=== PATIENT | male | born 1965 | race Hispanic/Latino ===

== ENCOUNTER → 2018-03-20 | Outpatient (CLI) | payer MEDICARE ==
[~2018-03-20] MED LIST: CLON1TAB12 PO; CLON2TAB21 PO; CYAN10007 IJ; ESOM40CA PO; FENO145T37 PO; FURO-152 PO; GABA-326 PO; LISI10TA7 PO; LURA80TA PO; METF-446 PO; OMEG1CAP6 PO; SITA100T12 PO; TOPI200T16 PO; VARE1TAB22 PO; VICODIN PO; [UNRECOGNIZED DRUG - REMARK] PO
== END | disposition home or self-care (01) ==
LOC: SHCH 14:20
PROVIDERS: ATTEND Internal Medicine Cardiovascular Disease
DX: I35.8 Other nonrheumatic aortic valve disorders (principal); I51.7 Cardiomegaly
CPT/HCPCS: 93306

== ENCOUNTER → 2018-03-23 | Outpatient (CLI) | payer MEDICARE ==
[~2018-03-23] MED LIST changes: +REGADENOSON 0.4 MG/5 ML PF SYG IVP SCH
== END | disposition home or self-care (01) ==
LOC: SHCH 08:14
PROVIDERS: ATTEND Internal Medicine Cardiovascular Disease
DX: R00.2 Palpitations (principal); R06.02 Shortness of breath
CPT/HCPCS: 78452; 93017; 96374; A9500 ×2; J2785

== ENCOUNTER 2018-07-31 04:15 | Emergency (ER) | payer MEDICARE ==
[~2018-07-31 04:15] MED LIST changes: +ALBU18HF7 IH; +ASPI-555 PO; +ATOR10TA69 PO; +BACL10TA PO; +BUPR-47 PO; -CLON1TAB12 PO; -CLON2TAB21 PO; -CYAN10007 IJ; +CYAN250010 PO; -FENO145T37 PO; -FURO-152 PO; -GABA-326 PO; +GABA600T10 PO; +LISI-617 PO; -LISI10TA7 PO; -LURA80TA PO; +MELA1TAB21 PO; +METF-444 PO; -METF-446 PO; +NITR100C11 PO; -OMEG1CAP6 PO; -REGADENOSON 0.4 MG/5 ML PF SYG IVP SCH; -SITA100T12 PO; +TAMS0.4C32 PO; -TOPI200T16 PO; +TRAZ-185 PO; -VARE1TAB22 PO; -[UNRECOGNIZED DRUG - REMARK] PO
[2018-07-31] MEDS ORDERED: ACETAMINOPHEN EXTRA STRENGTH 500 MG TABLET ONE (04:37)
[2018-07-31 04:43] LABS: APPEARANCE,URINE CLEAR (CLEAR); BILIRUBIN,URINE NEGATIVE (NEGATIVE); COLOR,URINE YELLOW (YELLOW); GLUCOSE, URINE (UA) NEGATIVE (NEGATIVE); KETONES,URINE NEGATIVE (NEGATIVE); LEUKOCYTE ESTERASE ,URINE NEGATIVE (NEGATIVE); NITRATE,URINE NEGATIVE (NEGATIVE); OCCULT BLOOD,URINE TRACE-INTACT (NEGATIVE); PROTEIN,URINE NEGATIVE (NEGATIVE); UROBILINOGEN,URINE 0.2 mg/dL (0.2-1.0)
[2018-07-31 04:44] LABS: EOSINOPHILS % (AUTO) 2.7 % (0.0-8.0); HEMATOCRIT 39.3 % (42-54); LYMPHOCYTES % (AUTO) 27.2 % (21.0-51.0); MEAN CORPUSCULAR HEMOGLOBIN 28.6 pg (27.0-33.0); MEAN CORPUSCULAR HGB CONC 33.8 g/dL (32.0-36.0); MEAN CORPUSCULAR VOLUME 84.8 fL (79-99); MONOCYTES % (AUTO) 7.6 % (3.0-13.0); NEUTROPHILS % (AUTO) 61.5 % (40.0-77.0); NUCLEATED RED BLOOD CELLS 0.1 % (0.0-0.19); PLATELET COUNT (AUTO) 296 K/uL (130-400); RED BLOOD CELL COUNT(AUTO) 4.63 MIL/uL (4.50-6.20); RED CELL DISTRIBUTION WIDTH 14.4 % (11.0-15.5); WHITE BLOOD COUNT (AUTO) 7.5 K/uL (4.8-10.8)
[2018-07-31] MEDS ORDERED: DiphenhydrAMINE HCL 50 MG/ML VIAL ONE (04:45)
[2018-07-31 04:52] LABS: CREATININE 0.9 mg/dL (0.5-1.5); POTASSIUM 3.5 mmol/L (3.5-5.1)
[2018-07-31 04:56] LABS: ALBUMIN 4.1 g/dL (3.5-5.0); BILIRUBIN,TOTAL 0.5 mg/dL (0.2-1.0); TOTAL PROTEIN, SERUM 8.1 g/dL (6.0-8.3)
== END 2018-07-31 06:59 | disposition home or self-care (01) ==
LOC: EDH 04:15
DX: R10.11 Right upper quadrant pain (principal); R05 Cough; F41.9 Anxiety disorder, unspecified; J44.9 Chronic obstructive pulmonary disease, unspecified; I10 Essential (primary) hypertension; E11.9 Type 2 diabetes mellitus without complications; F12.10 Cannabis abuse, uncomplicated; Z90.49 Acquired absence of other specified parts of digestive tract; Z72.0 Tobacco use
CPT/HCPCS: 36415; 71046; 80053; 81003; 83690; 83880; 84484; 85025; 93005; 96374; 99285; J1200

== ENCOUNTER 2018-08-02 12:05 | Emergency (ER) | payer MEDICARE ==
[2018-08-02 12:29] LABS: APPEARANCE,URINE Clear (CLEAR); BILIRUBIN,URINE Negative (NEGATIVE); COLOR,URINE Yellow (YELLOW); GLUCOSE, URINE (UA) Negative (NEGATIVE); KETONES,URINE Negative (NEGATIVE); LEUKOCYTE ESTERASE ,URINE Negative (NEGATIVE); NITRATE,URINE Negative (NEGATIVE); OCCULT BLOOD,URINE Negative (NEGATIVE); PROTEIN,URINE Negative (NEGATIVE)
[2018-08-02 12:37] LABS: AMPHET/METH SCREEN,URINE NEGATIVE (NEGATIVE); BARBITURATE SCREEN, URINE NEGATIVE (NEGATIVE); BENZODIAZEPINES SCREEN,URINE NEGATIVE (NEGATIVE); CANNABINOID SCREEN,URINE POSITIVE (NEGATIVE); COCAINE SCREEN,URINE NEGATIVE (NEGATIVE); OPIATE SCREEN,URINE POSITIVE (NEGATIVE); PHENCYCLIDINE SCREEN,URINE NEGATIVE (NEGATIVE)
[2018-08-02] MEDS ORDERED: KETOROLAC TROMETHAMINE 30MG/ML ONE (13:00)
[2018-08-02 13:06] LABS: EOSINOPHILS % (AUTO) 1.7 % (0.0-8.0); HEMATOCRIT 38.7 % (42-54); LYMPHOCYTES % (AUTO) 12.7 % (21.0-51.0); MEAN CORPUSCULAR HEMOGLOBIN 28.8 pg (27.0-33.0); MEAN CORPUSCULAR VOLUME 84.8 fL (79-99); MONOCYTES % (AUTO) 6.7 % (3.0-13.0); NEUTROPHILS % (AUTO) 77.9 % (40.0-77.0); PLATELET COUNT (AUTO) 304 K/uL (130-400); RED BLOOD CELL COUNT(AUTO) 4.56 MIL/uL (4.50-6.20); WHITE BLOOD COUNT (AUTO) 10.1 K/uL (4.8-10.8)
[2018-08-02 13:16] LABS: CREATININE 0.8 mg/dL (0.5-1.5); POTASSIUM 3.8 mmol/L (3.5-5.1)
[2018-08-02 13:19] LABS: ALBUMIN 4.1 g/dL (3.5-5.0); BILIRUBIN,TOTAL 0.6 mg/dL (0.2-1.0); TOTAL PROTEIN, SERUM 7.9 g/dL (6.0-8.3)
[2018-08-02] MEDS ORDERED: DIAZEPAM 5 MG TABLET ONE (13:31)
== END 2018-08-02 14:34 | disposition home or self-care (01) ==
LOC: EDH 12:05
DX: R10.9 Unspecified abdominal pain (principal); G89.29 Other chronic pain; M54.9 Dorsalgia, unspecified; R51 Headache; J44.9 Chronic obstructive pulmonary disease, unspecified; E11.9 Type 2 diabetes mellitus without complications; I10 Essential (primary) hypertension; Z90.49 Acquired absence of other specified parts of digestive tract; Z98.890 Other specified postprocedural states; Z72.0 Tobacco use
CPT/HCPCS: 36415; 74176; 80053; 80305; 81003; 83690; 85025; 96374; 99285; J1885

== ENCOUNTER 2022-03-19 00:15 | Emergency (ER) | payer MEDICARE ==
[~2022-03-19] VITALS: Ht 167.6 cm; Wt 114.8 kg
[~2022-03-19 00:15] MED LIST changes: -ASPI-555 PO; +ASPI-556 PO; -BUPR-47 PO; +BUPR-49 PO; -LISI-617 PO; +LISI5TAB21 PO; +NITR-103 PO; -NITR100C11 PO
[2022-03-19 00:57] LABS: BASOPHILS % (AUTO) 0.9 % (0.0-5.0); EOSINOPHILS % (AUTO) 1.3 % (0.0-8.0); HEMATOCRIT 44.6 % (42-54); LYMPHOCYTES % (AUTO) 25.3 % (21.0-51.0); MEAN CORPUSCULAR HEMOGLOBIN 31.6 pg (27.0-33.0); MEAN CORPUSCULAR HGB CONC 34.3 g/dL (32.0-36.0); MEAN CORPUSCULAR VOLUME 92.1 fL (79-99); MONOCYTES % (AUTO) 7.8 % (3.0-13.0); NEUTROPHILS % (AUTO) 64.2 % (40.0-77.0); PLATELET COUNT (AUTO) 260 K/uL (130-400); RED BLOOD CELL COUNT(AUTO) 4.84 MIL/uL (4.50-6.20); RED CELL DISTRIBUTION WIDTH 13.3 % (11.0-15.5); WHITE BLOOD COUNT (AUTO) 8.5 K/uL (4.8-10.8)
[2022-03-19 01:06] LABS: CREATININE 0.8 mg/dL (0.5-1.5); POTASSIUM 3.6 mmol/L (3.5-5.1)
[2022-03-19 01:10] LABS: ALBUMIN 3.9 g/dL (3.5-5.0); TOTAL PROTEIN, SERUM 7.2 g/dL (6.0-8.3)
[2022-03-19 01:13] LABS: APPEARANCE,URINE CLEAR (CLEAR); BILIRUBIN,URINE NEGATIVE (NEGATIVE); COLOR,URINE YELLOW (YELLOW); GLUCOSE, URINE (UA) >=1000 mg/dL (NEGATIVE); KETONES,URINE 10 mg/dL (NEGATIVE); LEUKOCYTE ESTERASE ,URINE NEGATIVE Leu/uL (NEGATIVE); NITRATE,URINE NEGATIVE (NEGATIVE); OCCULT BLOOD,URINE NEGATIVE (NEGATIVE); PH,URINE 5.5 (5.0-8.0); PROTEIN,URINE NEGATIVE (NEGATIVE); UROBILINOGEN,URINE 0.2 mg/dL (0.2-1.0)
[2022-03-19 01:15] LABS: MUCUS,URINE FEW LPF (None Seen); RBC,URINE 0-1 /HPF (0-1); SQUAMOUS EPITHELIAL CELL,UR FEW /HPF (0-2); WBC,URINE 0-1 /HPF (0-1)
[2022-03-19] MEDS ORDERED: 0.9%NACL 1000ML 1,000 ML IV ONE ×2 (01:37→02:00)
[2022-03-19] MEDS ORDERED: ZOSYN 3.375GM +NS 50ML IV STA (02:25)
[2022-03-19] MEDS ORDERED: MORPHINE 4 MG SYG IVP ONE (03:00)
[2022-03-19] MEDS ORDERED: ONDANSETRON 4MG INJ IVP ONE (03:00)
[2022-03-19 04:05] VITALS: BP 117/70
[2022-03-19] MEDS ORDERED: LIDOCAINE HCL 2% VISCOUS 15 ML UDCUP PO ONE (04:30)
[2022-03-19] MEDS ORDERED: MAG/ALUM/SIMETH 30 ML UDCUP PO ONE (04:30)
[2022-03-19] MEDS ORDERED: PANT40GR PO (05:29)
== END 2022-03-19 05:39 | disposition home or self-care (01) ==
LOC: EDH 00:15
DX: K29.70 Gastritis, unspecified, without bleeding (principal); J44.9 Chronic obstructive pulmonary disease, unspecified; E11.9 Type 2 diabetes mellitus without complications; E78.00 Pure hypercholesterolemia, unspecified; I10 Essential (primary) hypertension; F17.200 Nicotine dependence, unspecified, uncomplicated; Z98.890 Other specified postprocedural states; Z79.899 Other long term (current) drug therapy; Z79.82 Long term (current) use of aspirin; Z79.84 Long term (current) use of oral hypoglycemic drugs
CPT/HCPCS: 99284; 74176; 96365; 96375; 96361; 80053; 85025; 83605; 81001; 36415; J7030 ×2; J2405; J2270; J2543

== ENCOUNTER → 2023-07-20 | Outpatient (CLI) | payer MEDICARE ==
[~2023-07-20] MED LIST changes: +GADOTERATE MEGLUMINE 5 MMOL/10 ML VIAL IV ONE; +IOHEXOL 180 MG/ML 20 ML VIAL ONE; -MELA1TAB21 PO; +MELA1TAB73 PO; -NITR-103 PO; +NITR-166 PO; +PANT40GR PO
== END | disposition home or self-care (01) ==
LOC: RAH 07:16
PROVIDERS: ATTEND Family Medicine
DX: S43.432A Superior glenoid labrum lesion of left shoulder, initial encounter (principal); Z79.899 Other long term (current) drug therapy; X58.XXXA Exposure to other specified factors, initial encounter; Y93.89 Activity, other specified; Y92.89 Other specified places as the place of occurrence of the external cause; Y99.8 Other external cause status
CPT/HCPCS: 73223; 77002; 23350; Q9965; A9575

== ENCOUNTER → 2023-09-13 | Outpatient (CLI) | payer MEDICARE ==
[~2023-09-13] MED LIST changes: -GADOTERATE MEGLUMINE 5 MMOL/10 ML VIAL IV ONE; -IOHEXOL 180 MG/ML 20 ML VIAL ONE
[2023-09-13] MEDS: REGADENOSON 0.4 MG/5 ML PF SYG IVP ONE (11:18)
== END | disposition home or self-care (01) ==
LOC: SHCH 08:03
PROVIDERS: ATTEND Internal Medicine Cardiovascular Disease
DX: I10 Essential (primary) hypertension (principal); Z79.899 Other long term (current) drug therapy
CPT/HCPCS: 78452; 96374; 93017; J2785; A9500 ×2

== ENCOUNTER → 2024-07-17 | Outpatient (CLI) | payer MEDICARE ==
[~2024-07-17] MED LIST changes: +GABA-1405 PO; -GABA600T10 PO
--- NOTE | 2024-07-18 07:28 | HMCSR ---
APPROVED REPORT Laterality: Bilateral Indications r09.89 Doppler Spectral Velocity Analysis PSV / EDVPSV / EDV ECA (R) 120 / cm/sECA (L) 119 / cm/s dICA (R) 92 / 33 cm/sdICA (L) 62 / 24 cm/s Marguerite (R) 81 / 31 cm/smICA (L) 68 / 20 cm/s pICA (R) 85 / 29 cm/spICA (L) 78 / 23 cm/s dCCA (R) 69 / 13 cm/sdCCA (L) 116 / 23 cm/s mCCA (R) 105 / 15 cm/smCCA (L) 101 / 23 cm/s pCCA (R) 127 / 28 cm/spCCA (L) 149 / 28 cm/s Vert (R) 44 / cm/sVert (L) 51 / cm/s Subl. (R) 225 / cm/sSubl. (L) 218 / cm/s ICA/CCA 0.72ICA/CCA 0.52 Technologist Impression Minimal plaque noted in the bilateral carotids, without hemodynamic significance. Bilateral vertebral arteries appear antegrade. Moderately increased bilateral subclavian artery velocities. Technically difficult study Conclusion Minimal plaque noted in the bilateral carotids, without hemodynamic significance. Bilateral vertebral arteries appear antegrade. Moderately increased bilateral subclavian artery velocities. Conclusion Minimal plaque noted in the bilateral carotids, without hemodynamic significance. Bilateral vertebral arteries appear antegrade. Moderately increased bilateral subclavian artery velocities.
== END | disposition home or self-care (01) ==
LOC: SHCH 09:03
PROVIDERS: ATTEND Internal Medicine Cardiovascular Disease
DX: R09.89 Other specified symptoms and signs involving the circulatory and respiratory systems (principal)
CPT/HCPCS: 93880